=== PATIENT | male | born 1965 | race Caucasian/White ===

== ENCOUNTER 2020-05-18 07:15 | Inpatient (IN) | payer BC ==
[~2020-05-18 07:15] MED LIST: Dexamethasone 4 MG/ML SDV ONE; Glycopyrrolate 0.2 MG/ML 5 ML MDV ONE; Lactated Ringers 1,000 ML ONE; Neostigmine Methylsulfate 1 MG/ML 5 ML Syringe ONE; Ondansetron 4 MG/2 ML SDV ONE; Propofol 200 MG/20 ML SDV ONE; Rocuronium 50 MG/5 ML Vial ONE; Succinylcholine 200 MG/10 ML MDV ONE; cefOXitin 2 GM Vial ONE; fentaNYL 250 MCG/5 ML SDV ONE
[2020-05-18] MEDS ORDERED: Celecoxib 200 MG Cap PO ONE (07:30)
[2020-05-18] MEDS ORDERED: Acetaminophen 500 MG Tab PO ONE (07:30)
[2020-05-18] MEDS ORDERED: Scopolamine 1.5 MG Transdermal Patch TRDERM SCH (07:30)
[2020-05-18] MEDS ORDERED: Dextrose 5%-Lactated Ringers 1,000 ML IV SCH ×2 (08:00→12:45)
[2020-05-18 08:08] LABS: HEMOGLOBIN A1C 6.1 % (4.5-6.2)
[2020-05-18] MEDS ORDERED: cefOXitin 2 GM in Sodium Chloride 0.9% 50 ML IV ONE (09:00)
[2020-05-18] MEDS ORDERED: Ketamine 500 MG/5 ML MDV IV SCH (09:15)
[2020-05-18] MEDS ORDERED: Ketamine 50 MG in Sodium Chloride 0.9% 49.5 ML IV SCH (09:15)
[2020-05-18] MEDS ORDERED: fentaNYL 250 MCG/5 ML SDV ONE (09:59)
[2020-05-18] MEDS ORDERED: Rocuronium 50 MG/5 ML Vial ONE (10:06)
[2020-05-18] MEDS ORDERED: Lactated Ringers 1,000 ML ONE (10:51)
[2020-05-18] MEDS ORDERED: fentaNYL 100 MCG/2 ML SDV IVPUSH ONE (12:30)
[2020-05-18] MEDS ORDERED: hydrOXYzine HCL 100 MG/2 ML SDV IM ONE (12:30)
[2020-05-18] MEDS ORDERED: 50% Dextrose in Water 50 ML Syringe IVPUSH PRN (12:32)
[2020-05-18] MEDS ORDERED: Glucagon,Human Recombinant 1 MG Vial IM PRN (12:32)
[2020-05-18] MEDS ORDERED: Insulin Lispro 100 Unit/ML 3 ML KwikPen SUBCUT ONE (12:35)
[2020-05-18] MEDS ORDERED: Cyclobenzaprine 10 MG Tab PO PRN (12:51)
[2020-05-18] MEDS ORDERED: Insulin Lispro 100 Unit/ML 3 ML KwikPen SUBCUT PRN (13:00)
[2020-05-18] MEDS ORDERED: Calcium Gluconate 10% 1 GM/10 ML SDV IVPUSH PRN (13:00)
[2020-05-18] MEDS ORDERED: Metoclopramide 10 MG/2 ML SDV IVPUSH PRN (13:00)
[2020-05-18] MEDS ORDERED: hydrOXYzine HCL 100 MG/2 ML SDV IM PRN (13:00)
[2020-05-18] MEDS ORDERED: Labetalol 20 MG/4 ML Syringe IVPUSH PRN (13:00)
[2020-05-18] MEDS ORDERED: HYDROmorphone 0.5 MG/0.5 ML Syringe IVPUSH PRN (13:00)
[2020-05-18] MEDS ORDERED: Acetaminophen 500 MG Tab PO PRN (13:00)
[2020-05-18] MEDS ORDERED: HYDROmorphone 1 MG/ML Syringe IV PRN (13:00)
[2020-05-18] MEDS ORDERED: Ondansetron 4 MG/2 ML SDV IVPUSH PRN (13:00)
[2020-05-18] MEDS ORDERED: diphenhydrAMINE 50 MG/ML SDV IVPUSH PRN (13:00)
[2020-05-18] MEDS: Lactated Ringers 1,000 ML IV SCH (13:42)
[2020-05-18] MEDS ORDERED: MVI, Adult with Vitamin K 10 ML, Thiamine 200 MG, Zinc/Copper/Manganese/Selenium 1 ML i... IV SCH ×4 (16:00)
[2020-05-18] MEDS: cefOXitin 2 GM in Sodium Chloride 0.9% 50 ML IV SCH ×2 (16:00→21:09)
[2020-05-18] MEDS: Acetaminophen 500 MG Tab PO SCH ×2 (16:41→23:10)
[2020-05-18] MEDS: Pantoprazole 40 MG Vial IVPUSH SCH (16:41)
[2020-05-18] MEDS: Heparin Sodium 5,000 Units/ML Vial SUBCUT SCH (18:29)
[2020-05-18] MEDS: oxyCODONE 5 MG Tab PO PRN (19:12)
[2020-05-18] MEDS: atorvaSTATin 20 MG Tab PO SCH (21:06)
[2020-05-19] MEDS: oxyCODONE 5 MG Tab PO PRN ×2 (01:42→20:39)
[2020-05-19] MEDS: cefOXitin 2 GM in Sodium Chloride 0.9% 50 ML IV SCH ×2 (02:04→08:23)
[2020-05-19] MEDS: Lactated Ringers 1,000 ML IV SCH (02:58)
[2020-05-19] MEDS: Heparin Sodium 5,000 Units/ML Vial SUBCUT SCH ×2 (05:45→17:55)
[2020-05-19] MEDS: Acetaminophen 500 MG Tab PO SCH ×2 (07:41→16:00)
[2020-05-19] MEDS: FELODIPINE 5 MG PO SCH (08:17)
[2020-05-19] MEDS: Allopurinol 100 MG Tab PO SCH (08:17)
[2020-05-19] MEDS: Metoprolol Succinate 50 MG Tab.ER PO SCH (08:17)
[2020-05-19] MEDS: SCOPOLAMINE PATCH CHECK TOP SCH (08:18)
[2020-05-19] MEDS: Lisinopril 20 MG Tab PO SCH (08:18)
[2020-05-19] MEDS: Celecoxib 200 MG Cap PO SCH ×2 (08:18→20:36)
[2020-05-19] MEDS ORDERED: amLODIPine 5 MG Tab PO SCH (09:00)
[2020-05-19] MEDS ORDERED: Lactated Ringers 1,000 ML IV SCH (10:15)
[2020-05-19] MEDS ORDERED: MVI, Adult with Vitamin K 10 ML, Thiamine 200 MG, Zinc/Copper/Manganese/Selenium 1 ML i... IV SCH ×4 (16:00)
[2020-05-19] MEDS: Pantoprazole 40 MG Vial IVPUSH SCH (16:00)
[2020-05-19] MEDS: atorvaSTATin 20 MG Tab PO SCH (20:36)
[2020-05-20] MEDS: Acetaminophen 500 MG Tab PO SCH ×2 (00:34→07:45)
[2020-05-20] MEDS: oxyCODONE 5 MG Tab PO PRN ×2 (00:34→07:45)
[2020-05-20] MEDS: Heparin Sodium 5,000 Units/ML Vial SUBCUT SCH (05:05)
[2020-05-20] MEDS ORDERED: Magnesium Hydroxide 400 MG/5 ML Susp 30 ML Cup PO PRN (08:12)
[2020-05-20] MEDS: FELODIPINE 5 MG PO SCH (08:47)
[2020-05-20] MEDS: Allopurinol 100 MG Tab PO SCH (08:48)
[2020-05-20] MEDS: Celecoxib 200 MG Cap PO SCH (08:48)
[2020-05-20] MEDS: SCOPOLAMINE PATCH CHECK TOP SCH (08:49)
[2020-05-20] MEDS: Lisinopril 20 MG Tab PO SCH (08:50)
[2020-05-20] MEDS: Metoprolol Succinate 50 MG Tab.ER PO SCH (08:50)
[2020-05-20] MEDS ORDERED: Cyanocobalamin (Vitamin B12) 1,000 MCG/ML SDV IM ONE (09:00)
--- NOTE | 2020-05-20 11:34 | PN ---
DATE OF SERVICE: 05/19/2020 The patient has been afebrile with stable vital signs. Following a duodenal switch and repair of diaphragmatic hernia yesterday, clinically he is doing well. Blood sugar is in the 160 range off medication with some , so he is getting good diabetic response. We will switch him over to plain LR today. We will go up to step 2 diet, and otherwise maximize activity and work with pulmonary toilet. Ruben Yoon MD /[id number]
[2020-05-20] MEDS ORDERED: Pantoprazole 40 MG Delayed-Release Granules 1 Packet PO SCH (16:30)
--- NOTE | 2020-05-21 09:22 | CR ---
[facility] HISTORY: Postbariatric surgery FINDINGS: Patient swallowed water-soluble contrast. Upright views of the abdomen show no evidence of extravasation or obstruction. There is a surgical drain in the left upper quadrant. There is generalized small bowel dilatation most likely postoperative ileus IMPRESSION: Status post bariatric surgery No extravasation or obstruction seen
--- NOTE | 2020-05-22 09:57 | DISCH ---
FINAL DIAGNOSES: 1. Morbid obesity. 2. Marked hepatomegaly. 3. Paraesophageal diaphragmatic hernia associated with mediastinal lipoma. 4. History of hypertension. 5. History of type 2 diabetes mellitus. 6. History of hyperlipidemia. 7. History of gout. OPERATIVE PROCEDURES: Done on 05/18, diagnostic laparoscopy with: 1. Laparoscopic duodenal switch. 2. Uli-Cut needle liver biopsy. 3. Repair of paraesophageal diaphragmatic hernia. 4. Excision of mediastinal lipoma. SUMMARY: This is a 55-year-old male, presenting with longstanding morbid obesity, and at this point, a full-blown metabolic syndrome including type 2 diabetes mellitus, hypertension, and hyperlipidemia. After preoperative evaluation and discussion, he wished to proceed with a duodenal switch procedure which was done on the date of procedure along with the above-noted procedures. Postoperatively, he has done well. He is off the metformin and not presently on any diabetic medication. His blood sugar is in the 130 to 150 range, so his diabetes is already heading well into remission. He will be discharged home on a step-2 diet i.e. a liquid diet for the first month postoperatively. Otherwise, he will be on his usual medications other than for the metformin. We will send Milk of Magnesia, and then, he is instructed in addition to Tylenol q.6 hours p.r.n. pain and oxycodone 5 mg p.o. q.4 hours p.r.n. pain #30. Followup will be with Maddie Skelton at [facility] on 05/28/2020. /[id number]
--- NOTE | 2020-05-28 09:53 | OR ---
DATE OF PROCEDURE: 05/18/2020 SURGEON: Ruben Yono MD PREOPERATIVE DIAGNOSIS: Morbid obesity. POSTOPERATIVE DIAGNOSES: 1. Morbid obesity. 2. Marked hepatomegaly. 3. Paraesophageal diaphragmatic hernia. 4. Mediastinal lipoma. OPERATIVE PROCEDURES: Diagnostic laparoscopy with: 1. Laparoscopic duodenal switch (73182). 2. Uli-Cut needle liver biopsy (52203). 3. Repair of paraesophageal diaphragmatic hernia (12219). 4. Excision of mediastinal lipoma (76929). ANESTHESIA: General. DATA SYSTEMS ANALYST: Maddie Skelton PA-C. INDICATIONS FOR PROCEDURE: This is a 55-year-old male presenting with longstanding morbid obesity and increasingly significant comorbidities. After preoperative evaluation and discussion, he wished to proceed with a duodenal switch procedure. Potential risks of the procedure including bleeding, infection, leaks from various GI tract closures, problems with bowel obstruction over time as well as possibility of cardiopulmonary, septic, or hemorrhagic complications leading to were discussed, and the patient wishes to proceed. DETAILS OF PROCEDURE: The patient was taken to the operating room and after general endotracheal anesthesia was induced, was placed in a lithotomy position. A Dickerson catheter was inserted and the abdomen was prepped and draped. At 20 cm inferior and 5 cm left of the xiphoid process, a transverse incision was made and peritoneal cavity entered. Under direct vision with an Optiview trocar, inflated to 15 mmHg pressure with CO2. The laparoscope was reinserted. No underlying trocar insertion site injuries were seen. Following this, six additional trocars were placed across the upper and mid abdomen. Bilateral transversus abdominis plane blocks were placed. The patient was noted to have marked hepatomegaly with liver being grossly fatty infiltrated. Uli-Cut needle biopsies were obtained from the left lobe of the liver. Minimal bleeding from the biopsy sites was controlled with electrocautery. At this point, the small bowel was identified at the ileocecal valve and then traced back 300 cm proximal. At that point, sutures were placed in the bowel. At this point, it was fixed to the omentum overlying the transverse colon to allow subsequent identification of the bowel. This maneuver confirmed adequate mobility of the small bowel up to the level of the duodenum; however, the mesentery was very thickened and we would elect to proceed with a duodenal ileostomy to delay the secondary Angel-en-Y anastomosis so as to avoid likely higher incidence of leaks and difficulties with anastomoses due to the tension on the mesentery and complete that secondary anastomosis at a later time if necessary. The liver was retracted anteriorly. The patient was noted to have a moderate-sized paraesophageal diaphragmatic hernia containing some perigastric fat, gastric fundus, and a tongue of omentum. The hernia was reduced at this point and the peritoneum overlying was incised and reflected downward. During the course of this dissection, mediastinal lipoma was encountered and this was excised so as to have a more adequate closure of the crura. Once these dissections had been completed of the distal esophagus, crural repair was accomplished anteriorly with 0 Ethibond sutures reinforced with PTFE pledgets. The omentum was then divided away from the mid greater curvature with Harmonic Scalpel. This dissection continued initially proximally across the short gastric vessels including the hiatus posterior, short gastric vessels. Care was taken to obtain complete dissection of the fundus away from the area on the left crura so as to avoid leaving a cul-de-sac of stomach in that area. The dissection then continued distally across the pyloric channel roughly 4 cm distal to the pylorus. At this point, the sleeve gastrectomy component was accomplished. Resectional procedure began 6 cm proximal to the pylorus and continued underneath the incisura angularis with tension to avoid over-tightening of that area. A 40-Vietnamese chest tube was then placed orally per Anesthesia and positioned along the lesser curvature of the stomach. This acted as a template for remainder of the sleeve gastrectomy, which was accomplished with a series of reinforced black and reinforced purple MARTHA loads. Upon completion of the resection, staple line was inspected and found to be intact and the stomach was placed off the side. The duodenum was then dissected at 0.4 cm distal to the pylorus and this allowed division of the duodenum at that level with a reinforced MARTHA purple load. One additional giraldo load was placed along the superior aspect of the duodenum to allow it to drop down somewhat further for the subsequent anastomosis. The ileum was then identified at that point, 300 cm proximal to the ileocecal valve. Again, 2 stay sutures between the ileum and the superior and then the inferior aspect of the duodenum were placed with 3-0 Vicryl stitch. Duodenostomy and the opening in the ileum for Angel limb made and using a 30 mm MARTHA giraldo load, the initial duodenal ileostomy was created. The common opening was then closed after placement of stay sutures on the superior, inferior, and middle aspects of the common opening pulling these up while the common opening was then stapled off. This common opening appeared to be satisfactorily completed at this point and that staple line reinforced with some 3-0 Vicryl seromuscular stitch. The duodenal ileostomy was then reinforced with some fibrin sealant. Two sutures to the small bowel and proximal to the duodenal ileostomy up to the area adjacent to the distal antrum were placed again with 3-0 Vicryl stitch to encourage the flow of the contents out of the duodenum in a distal direction within the small bowel. Using the chest tube, then a leak test was accomplished with injection of air into the sleeve gastrectomy. Air was confirmed to flow across the duodenal ileostomy into the small bowel while the area of the two staple lines was irrigated with antibiotic-containing saline solution. No bubbles or other signs of leak were identified. Chest tube was then removed. The gastric specimen was then removed as well through the left lateral trocar site. The sleeve gastrectomy staple line was reinforced with some fibrin sealant and the omentum tacked up along its edges with some 3-0 Vicryl stitch as well. A single Patric-Sampson drain was then placed through the left lateral trocar site, positioned against the area around the esophagogastric junction and from there up into the splenic fossa. The trocars were then sequentially removed and the peritoneal cavity deflated. Incisions were closed with some 4-0 Vicryl skin stitch and the drain affixed with 4-0 Vicryl stitch as well. The patient was taken to the recovery room in satisfactory condition. Physician speech pathology assistant, Maddie Skelton, played an essential role in assisting in this case, helping to position the patient, retract structures as needed, as well as suturing and cutting sutures when indicated. Her presence improved patient safety and decreased operative time. Ruben Yoon MD /[id number]
== END 2020-05-20 09:30 | disposition home or self-care (01) | DRG 403 ==
LOC: EDSTATUS 07:15 → JP.SDS 07:15 → JP.SDSSCHI 07:15 → JP.MS 12:20
PROVIDERS: ADMIT Surgery; ATTEND Surgery
PROC: 0D194ZB Bypass Duodenum to Ileum, Percutaneous Endoscopic Approach (ICD-10-PCS; principal; 2020-05-18)
PROC: 0FB24ZX Excision of Left Lobe Liver, Percutaneous Endoscopic Approach, Diagnostic (ICD-10-PCS; 2020-05-18)
PROC: 0BQT4ZZ Repair Diaphragm, Percutaneous Endoscopic Approach (ICD-10-PCS; 2020-05-18)
PROC: 0JB63ZZ Excision of Chest Subcutaneous Tissue and Fascia, Percutaneous Approach (ICD-10-PCS; 2020-05-18)
DX: E66.01 Morbid (severe) obesity due to excess calories (principal); R16.0 Hepatomegaly, not elsewhere classified; K44.9 Diaphragmatic hernia without obstruction or gangrene; I10 Essential (primary) hypertension; E11.9 Type 2 diabetes mellitus without complications; E78.5 Hyperlipidemia, unspecified; M10.9 Gout, unspecified; D17.4 Benign lipomatous neoplasm of intrathoracic organs; Z68.42 Body mass index [BMI] 45.0-49.9, adult
CPT/HCPCS: 36415; 74240; 74240-26; 80053; 82962; 83036; 83735; 83880; 84100; 84443; 85027; 86850; 86900; 86901; 88304; 88307; 88313; 94762; A9270-GY; C9113; J0171; J0330; J0694; J1100; J1170; J1644; J1815; J2405; J2704; J2710; J2795; J3010; J3410; J3411; J3420; J3475; J3490; J7050; J7120; J7121